=== PATIENT | female | born 1990 | race Caucasian/White ===

== ENCOUNTER 2023-12-22 20:15 | Emergency (ER) | payer OTHER ==
[~2023-12-22] VITALS: Ht 167.6 cm; Wt 87.5 kg
[2023-12-22 20:25] VITALS: BP 117/82; PULSE 100; RESP 18; TEMP 98; O2SAT 99
[2023-12-22] MEDS: NACL 0.9% 1,000 ML IV ONE (20:52)
[2023-12-22] MEDS: ONDANSETRON 4 MG/2 ML VIAL IVP ONE (20:54)
[2023-12-22 20:59] LABS: BASOPHILS % (AUTO) 0.1 % (0.0-2.0); HEMATOCRIT 43.2 % (36-48); HEMOGLOBIN 14.5 g/dL (12.0-16.0); LYMPHOCYTES # (AUTO) 0.5 K/uL (2.5-16.5); LYMPHOCYTES % (AUTO) 3.8 % (20.5-51.1); MEAN CORPUSCULAR HEMOGLOBIN 29 pg (27-31); MEAN CORPUSCULAR HGB CONC 34 g/dL (33-37); MEAN CORPUSCULAR VOLUME 86.5 fL (80-94); MONOCYTES # (AUTO) 0.1 K/uL (0.8-1.0); NEUTROPHILS # (AUTO) 11.6 K/uL (1.8-7.7); NEUTROPHILS % (AUTO) 95.1 % (42.2-75.2); PLATELET COUNT (AUTO) 222 K/uL (140-450); RED BLOOD CELL COUNT(AUTO) 4.99 MIL/uL (4.20-5.40); WHITE BLOOD COUNT (AUTO) 12.2 K/uL (4.8-10.8)
[2023-12-22 21:07] LABS: APPEARANCE,URINE CLEAR (CLEAR); BILIRUBIN,URINE NEGATIVE (NEGATIVE); BLOOD, URINE 1+ (NEGATIVE); COLOR,URINE YELLOW (YELLOW); LEUKOCYTE ESTERASE ,URINE NEGATIVE (NEGATIVE); NITRITE, URINE NEGATIVE (NEGATIVE); PROTEIN,URINE TRACE (NEGATIVE); UGLUCOSE NEGATIVE (NEGATIVE); UROBILINOGEN,URINE 0.2 EU/dL (0.2 - 1)
[2023-12-22 21:11] LABS: BACTERIA,URINE 10-30 (MOD) /HPF (None Seen); SQUAMOUS EPITHELIAL CELL,UR 0-3 (FEW) /LPF (0-3 (FEW)); WBC,URINE 0-5 /HPF (0-5)
[2023-12-22 21:12] LABS: URINE AMORPHOUS URATE 1+ /HPF (None Seen)
[2023-12-22 21:19] LABS: ANION GAP 16.4 (8-16); CALCIUM 8.9 mg/dL (8.5-10.1); CARBON DIOXIDE 24.4 mmol/L (21-32); POTASSIUM 3.8 mmol/L (3.5-5.1)
[2023-12-22 21:26] LABS: ALBUMIN 4.2 g/dL (3.4-5.0); BILIRUBIN,DIRECT 0.2 mg/dL (0.0-0.3); TOTAL BILIRUBIN 1.6 mg/dL (0.0-1.0); TOTAL PROTEIN, SERUM 8.3 g/dL (6.4-8.2)
[2023-12-22] MEDS: METOCLOPRAMIDE 10 MG/2 ML INJ VIAL IVP ONE (21:50)
[2023-12-22] MEDS: MORPHINE SULFATE 4 MG/ML SYR IVP ONE (21:51)
[2023-12-22] MEDS ORDERED: cefTRIAXone 1,000 MG VIAL ONE (21:51)
[2023-12-22] MEDS ORDERED: NITR100C7 PO (22:15)
[2023-12-22] MEDS ORDERED: ONDA-188 SL (22:15)
[2023-12-22 22:20] VITALS: BP 112/75; PULSE 100; RESP 18; TEMP 98; O2SAT 99
== END 2023-12-22 22:20 | disposition home or self-care (01) ==
LOC: MED 20:15
DX: N39.0 Urinary tract infection, site not specified (principal); R19.7 Diarrhea, unspecified; R11.2 Nausea with vomiting, unspecified; Z79.899 Other long term (current) drug therapy
CPT/HCPCS: 36415; 80048; 80076; 81001; 81025; 85025; 87040; 87086; 96374; 96375; 99285; J0696; J2270; J2405; J2765; J7030